=== PATIENT | male | born 1975 | race Caucasian/White ===

== ENCOUNTER 2021-04-17 09:40 | Emergency (ER) | payer SELFPAY ==
[~2021-04-17] VITALS: Ht 170.2 cm; Wt 112.5 kg
[2021-04-17 10:10] VITALS: BP 131/77
--- NOTE | 2021-04-17 10:14 | NUR ---
pt triaged in tent at this time. novel and flu swabbed and sent to lab.
[2021-04-17] MEDS ORDERED: PRED20TA5 PO (11:42)
[2021-04-17] MEDS ORDERED: AZIT250T4 PO (11:42)
[2021-04-17] MEDS ORDERED: NAPR-54 PO (11:42)
[2021-04-17 12:02] VITALS: BP 131/77
--- NOTE | 2021-04-17 12:02 | NUR ---
Patient discharged with v/s stable. Written and verbal after care instructions given and explained. Patient alert, oriented and verbalized understanding of instructions. Ambulatory with steady gait. All questions addressed prior to discharge. ID band removed. Patient advised to follow up with PMD. Rx of prenisone, naproxen, azithromycin (sent) given. Patient educated on indication of medication including possible reaction and side effects. Opportunity to ask questions provided and answered.
== END 2021-04-17 12:02 | disposition home or self-care (01) ==
LOC: MED 09:40
DX: B34.9 Viral infection, unspecified (principal); Z20.822 Contact with and (suspected) exposure to COVID-19; J18.9 Pneumonia, unspecified organism; Z79.899 Other long term (current) drug therapy
CPT/HCPCS: 71045; 87804; 99284; U0003